=== PATIENT | female | born 1995 | race African-American/Black ===

== ENCOUNTER 2018-10-11 03:18 | Emergency (ER) | payer OTHER ==
[~2018-10-11] VITALS: Ht 165.1 cm; Wt 104.3 kg
[2018-10-11] MEDS ORDERED: LAMICTAL (ORAN1 EACH PO (03:53)
[2018-10-11] MEDS ORDERED: TRAZODONE 150150 M1 PO (03:54)
[2018-10-11] MEDS ORDERED: MINIPRESS1 MG PO (03:54)
[2018-10-11] MEDS ORDERED: ACYCLOVIR 400400 MG PO (03:55)
[2018-10-11] MEDS ORDERED: PRILOSEC OTC20 MG PO (03:55)
[2018-10-11] MEDS ORDERED: ROBAXIN 750 MG750 MG PO (03:57)
[2018-10-11] MEDS ORDERED: ZANAFLEX4 MG PO ×2 (03:57→06:27)
[2018-10-11 05:10] LABS: URINE BILIRUBIN NEGATIVE (Negative); URINE BLOOD NEGATIVE (Negative); URINE CLARITY SL CLOUDY; URINE COLOR YELLOW; URINE GLUCOSE-RANDOM* NEGATIVE (Negative); URINE KETONES NEGATIVE (Negative); URINE LEUKOCYTES-REFLEX TRACE (Negative); URINE NITRITE-REFLEX NEGATIVE (Negative); URINE PROTEIN (DIPSTICK) NEGATIVE (Negative); URINE SPECIFIC GRAVITY 1.025 (1.005-1.035); URINE UROBILINOGEN 0.2 E.U./dl (0.2-1.0)
[2018-10-11] MEDS ORDERED: MEDROLDOSEPACK PO (06:27)
[2018-10-11 06:58] VITALS: BP 113/69
== END 2018-10-11 06:59 | disposition home or self-care (01) ==
LOC: ER 03:18
PROVIDERS: Emergency Medicine
DX: S39.012A Strain of muscle, fascia and tendon of lower back, initial encounter (principal); J45.909 Unspecified asthma, uncomplicated; E28.2 Polycystic ovarian syndrome; X58.XXXA Exposure to other specified factors, initial encounter; Y92.89 Other specified places as the place of occurrence of the external cause; Y93.89 Activity, other specified; Y99.8 Other external cause status